=== PATIENT | male | born 1975 | race African-American/Black ===

== ENCOUNTER → 2021-08-16 | Outpatient (CLI) | payer OTHER | LOC: M PLAIMG 10:31 | PROVIDERS: ATTEND Orthopaedic Surgery | DX: M94.261 Chondromalacia, right knee (principal); M25.761 Osteophyte, right knee; M67.51 Plica syndrome, right knee ==

== ENCOUNTER → 2021-10-01 | Outpatient (CLI) | payer OTHER | LOC: M WUC 09:32 | PROVIDERS: ATTEND Nurse Practitioner Family | DX: R76.11 Nonspecific reaction to tuberculin skin test without active tuberculosis (principal) ==

== ENCOUNTER → 2021-12-23 | Outpatient (CLI) | payer OTHER | LOC: M SOG 08:26 | PROVIDERS: ATTEND Orthopaedic Surgery | DX: M17.11 Unilateral primary osteoarthritis, right knee (principal); M23.321 Other meniscus derangements, posterior horn of medial meniscus, right knee ==

== ENCOUNTER → 2022-02-26 | Outpatient (CLI) | payer OTHER | LOC: M SOG 14:19 | PROVIDERS: ATTEND Orthopaedic Surgery | DX: M25.562 Pain in left knee (principal) ==

== ENCOUNTER 2022-03-13 10:43 | Inpatient (IN) | payer OTHER ==
[~2022-03-13] VITALS: Ht 172.7 cm; Wt 102.0 kg
[2022-03-13 12:40] LABS: HEMATOCRIT 44.1 % (42.0-52.0); HEMOGLOBIN 15.7 g/dl (13.5-17.5); MEAN CORPUSCULAR HEMOGLOBIN 28.8 pg (27.0-33.0); MEAN CORPUSCULAR HGB CONC 35.6 g/dl (32.0-36.5); MEAN CORPUSCULAR VOLUME 80.8 fl (80.0-96.0); PLATELET COUNT, AUTOMATED 207 10^3/uL (150-450); RED BLOOD COUNT 5.46 10^6/uL (4.30-6.10); WHITE BLOOD COUNT 4.7 10^3/uL (4.0-10.0)
[2022-03-13 13:27] LABS: RSV AMPLIFICATION NEGATIVE (NEGATIVE)
[2022-03-13 13:48] LABS: AMPHETAMINES LEVEL URINE NEGATIVE (NEGATIVE); BARBITURATES URINE NEGATIVE (NEGATIVE); BENZODIAZEPINES URINE NEGATIVE (NEGATIVE); CANNABINOIDS URINE NEGATIVE (NEGATIVE); COCAINE METABOLITE URINE NEGATIVE (NEGATIVE); METHADONE URINE NEGATIVE (NEGATIVE); OPIATES URINE NEGATIVE (NEGATIVE); PHENCYCLIDINE URINE NEGATIVE (NEGATIVE)
[2022-03-13 14:02] LABS: ACETAMINOPHEN LEVEL < 2.0 UG/ML (10.0-20.0); ALBUMIN 3.9 G/DL (3.2-5.2); ALT/SGPT 21 U/L (7.0-40); BILIRUBIN,DIRECT 0.1 MG/DL (<0.4); BILIRUBIN,TOTAL 0.6 MG/DL (0.3-1.2); BLOOD UREA NITROGEN 14 MG/DL (9-23); CALCIUM LEVEL 9.8 MG/DL (8.5-10.1); CARBON DIOXIDE LEVEL 25 MMOL/L (20-31); CHLORIDE LEVEL 106 MMOL/L (98-107); CREATININE FOR GFR 1.31 MG/DL (0.70-1.30); ETHYL ALCOHOL (ETHANOL) 0.004 % (0.000-0.010); GLOMERULAR FILTRATION RATE > 60.0 (>60); GLUCOSE, FASTING 90 MG/DL (60-100); POTASSIUM SERUM 4.1 MMOL/L (3.5-5.1); SODIUM LEVEL 139 MMOL/L (136-145); THYROID STIMULATING HORMONE 0.883 uIU/ML (0.55-4.78); TOTAL PROTEIN 6.8 G/DL (5.7-8.2)
[2022-03-13 14:31] LABS: SALICYLATE LEVEL < 3.0 MG/DL (<30)
[2022-03-13] MEDS ORDERED: TRAZ300T2 PO (16:06)
[2022-03-13] MEDS ORDERED: FLUT11IN INH (16:06)
[2022-03-13] MEDS ORDERED: SIMV10TA21 PO (16:06)
[2022-03-13] MEDS ORDERED: BUSP10TA PO (16:06)
[2022-03-13] MEDS ORDERED: TOPI200T7 PO (16:06)
[2022-03-13] MEDS ORDERED: VENTAER INH (16:06)
[2022-03-13] MEDS ORDERED: OXYB15TA14 PO (16:06)
[2022-03-13] MEDS ORDERED: DULO1CAP6 PO (16:06)
[2022-03-13] MEDS ORDERED: HOME MED LIST COMPLETE! XX SCH (16:10)
[2022-03-13] MEDS ORDERED: busPIRone 10 MG TAB PO ONE (17:15)
[2022-03-13] MEDS ORDERED: oxyBUTYnin *DITROPAN XL* 5 MG TABCR PO ONE (22:15)
[2022-03-13] MEDS ORDERED: oxyBUTYnin 5 MG TAB PO ONE (22:15)
[2022-03-13] MEDS ORDERED: TOPIRAMATE (TopAMAX) 100 MG TAB PO ONE (22:20)
[2022-03-13] MEDS ORDERED: SIMVASTATIN 10 MG TAB PO ONE (22:20)
[2022-03-13] MEDS ORDERED: traZODone 100 MG TAB PO ONE (22:20)
[2022-03-14] MEDS ORDERED: ALBUTEROL 90 MCG/ACT 8GM HFA INHALER INH PRN (08:45)
[2022-03-14] MEDS: oxyBUTYnin *DITROPAN XL* 5 MG TABCR PO SCH (09:00)
[2022-03-14] MEDS: busPIRone 10 MG TAB PO SCH ×2 (10:50→20:25)
[2022-03-14] MEDS: DULoxetine 30MG CAPSULE (CYMBALTA) PO SCH (10:51)
[2022-03-14] MEDS: traZODone 100 MG TAB PO SCH (20:25)
[2022-03-14] MEDS: SIMVASTATIN 10 MG TAB PO SCH (20:25)
[2022-03-14] MEDS: TOPIRAMATE (TopAMAX) 100 MG TAB PO SCH (20:26)
[2022-03-15] MEDS: busPIRone 10 MG TAB PO SCH ×2 (09:57→21:41)
[2022-03-15] MEDS: oxyBUTYnin *DITROPAN XL* 5 MG TABCR PO SCH (09:57)
[2022-03-15] MEDS: DULoxetine 30MG CAPSULE (CYMBALTA) PO SCH (09:57)
[2022-03-15] MEDS ORDERED: ACETAMINOPHEN TAB 650MG DOSE (2X325MG) PO ONE ×2 (13:15→22:10)
[2022-03-15] MEDS ORDERED: oxyBUTYnin *DITROPAN XL* 5 MG TABCR PO ONE (20:50)
[2022-03-15] MEDS: SIMVASTATIN 10 MG TAB PO SCH (21:40)
[2022-03-15] MEDS: traZODone 100 MG TAB PO SCH (21:40)
[2022-03-15] MEDS: TOPIRAMATE (TopAMAX) 100 MG TAB PO SCH (21:41)
[2022-03-16] MEDS: busPIRone 10 MG TAB PO SCH ×2 (09:28→21:29)
[2022-03-16] MEDS: DULoxetine 30MG CAPSULE (CYMBALTA) PO SCH (09:28)
[2022-03-16] MEDS: oxyBUTYnin *DITROPAN XL* 5 MG TABCR PO SCH (09:29)
[2022-03-16] MEDS: TOPIRAMATE (TopAMAX) 100 MG TAB PO SCH (21:00)
[2022-03-16] MEDS: traZODone 100 MG TAB PO SCH (21:29)
[2022-03-16] MEDS: SIMVASTATIN 10 MG TAB PO SCH (21:30)
[2022-03-17] MEDS: oxyBUTYnin *DITROPAN XL* 5 MG TABCR PO SCH ×2 (08:38→20:25)
[2022-03-17] MEDS: busPIRone 10 MG TAB PO SCH ×2 (08:39→20:26)
[2022-03-17] MEDS ORDERED: DULoxetine 30MG CAPSULE (CYMBALTA) PO ONE (09:00)
[2022-03-17] MEDS ORDERED: ALBUTEROL 90 MCG/ACT 8GM HFA INHALER INH PRN (10:35)
[2022-03-17] MEDS ORDERED: IBUPROFEN 400MG TAB PO PRN (10:35)
[2022-03-17] MEDS ORDERED: MAALOX 30 ML SUSP *UDC PO PRN (10:35)
[2022-03-17] MEDS ORDERED: MOM 30ML SUSPENSION UDC PO PRN (10:35)
[2022-03-17 11:28] LABS: RSV AMPLIFICATION NEGATIVE (NEGATIVE)
[2022-03-17 17:20] VITALS: BP 135/73
[2022-03-17] MEDS: SIMVASTATIN 10 MG TAB PO SCH (20:25)
[2022-03-17] MEDS: TOPIRAMATE (TopAMAX) 100 MG TAB PO SCH (20:25)
[2022-03-17] MEDS ORDERED: oxyBUTYnin *DITROPAN XL* 5 MG TABCR PO SCH (21:00)
[2022-03-17] MEDS ORDERED: traZODone 100 MG TAB PO SCH (21:00)
[2022-03-18 06:30] VITALS: BP 108/70
[2022-03-18] MEDS: NICOTINE 21MG/24HR 1 EA TRANSDERMAL TD SCH (09:00)
[2022-03-18] MEDS ORDERED: DULoxetine 30MG CAPSULE (CYMBALTA) PO SCH (09:00)
[2022-03-18] MEDS: busPIRone 10 MG TAB PO SCH ×2 (09:16→21:32)
[2022-03-18 16:17] VITALS: BP 133/86
[2022-03-18] MEDS ORDERED: traZODone 100 MG TAB PO SCH (21:00)
[2022-03-18] MEDS ORDERED: MIRTAZAPINE 15 MG TAB PO SCH ×2 (21:00)
[2022-03-18] MEDS ORDERED: ARIPiprazole 2 MG TAB PO SCH (21:00)
[2022-03-18] MEDS: oxyBUTYnin *DITROPAN XL* 5 MG TABCR PO SCH (21:32)
[2022-03-18] MEDS: SIMVASTATIN 10 MG TAB PO SCH (21:32)
[2022-03-18] MEDS: TOPIRAMATE (TopAMAX) 100 MG TAB PO SCH (21:32)
[2022-03-19 06:06] VITALS: BP 125/78
[2022-03-19] MEDS: busPIRone 10 MG TAB PO SCH (07:54)
[2022-03-19] MEDS: NICOTINE 21MG/24HR 1 EA TRANSDERMAL TD SCH (07:54)
[2022-03-19] MEDS ORDERED: TRAZ-257 PO (08:59)
[2022-03-19] MEDS ORDERED: MIRT-10 PO (08:59)
[2022-03-19] MEDS ORDERED: NICO21PAT TD (08:59)
[2022-03-19] MEDS ORDERED: DULoxetine 30MG CAPSULE (CYMBALTA) PO SCH ×2 (09:00)
== END 2022-03-19 14:00 | disposition home or self-care (01) | DRG 885 ==
LOC: M ED 10:43 → M ED INP 03-17 10:34 → M PSY 03-17 16:08
PROVIDERS: ADMIT Student in an Organized Health Care Education/Training Program; ATTEND Student in an Organized Health Care Education/Training Program
DX: F32.89 Other specified depressive episodes (principal); R45.851 Suicidal ideations; F43.9 Reaction to severe stress, unspecified; F60.89 Other specific personality disorders; F10.90 Alcohol use, unspecified, uncomplicated; Z62.810 Personal history of physical and sexual abuse in childhood; R35.0 Frequency of micturition; N52.9 Male erectile dysfunction, unspecified; J45.909 Unspecified asthma, uncomplicated; H91.3 Deaf nonspeaking, not elsewhere classified; M25.561 Pain in right knee; G47.33 Obstructive sleep apnea (adult) (pediatric); G43.909 Migraine, unspecified, not intractable, without status migrainosus; E78.5 Hyperlipidemia, unspecified; Z79.899 Other long term (current) drug therapy

== ENCOUNTER → 2022-05-08 | Outpatient (CLI) | payer OTHER ==
[~2022-05-08] MED LIST: BUSP10TA PO; DULO1CAP6 PO; FLUT11IN INH; MIRT-10 PO; NICO21PAT TD; OXYB15TA14 PO; SIMV10TA21 PO; TOPI200T7 PO; TRAZ-257 PO; TRAZ300T2 PO; VENTAER INH
== END ==
LOC: M RAD 07:01
PROVIDERS: ATTEND Nurse Practitioner
DX: Z01.89 Encounter for other specified special examinations (principal)

== ENCOUNTER → 2022-06-23 | Outpatient (REF) | payer OTHER | LOC: M LAB REF 17:45 | PROVIDERS: ATTEND Internal Medicine Nephrology | DX: N18.2 Chronic kidney disease, stage 2 (mild) (principal) ==

== ENCOUNTER → 2022-10-06 | Outpatient (CLI) | payer OTHER ==
[~2022-10-06] MED LIST changes: -FLUT11IN INH; +FLUT12AE6 INH
== END ==
LOC: M WUC 14:28
PROVIDERS: ATTEND Surgery
DX: A15.0 Tuberculosis of lung (principal)

== ENCOUNTER → 2023-05-20 | Outpatient (CLI) | payer OTHER | LOC: M SOG 07:51 | PROVIDERS: ATTEND Orthopaedic Surgery | DX: M17.0 Bilateral primary osteoarthritis of knee (principal) ==

== ENCOUNTER → 2024-02-01 | Outpatient (REF) | LOC: M PLAIMG 08:40 | PROVIDERS: ATTEND Internal Medicine | DX: R52 Pain, unspecified (principal) ==

== ENCOUNTER → 2024-06-02 | Outpatient (CLI) | payer OTHER | LOC: M PLAIMG 11:58 | PROVIDERS: ATTEND Orthopaedic Surgery | DX: M70.61 Trochanteric bursitis, right hip (principal); M70.62 Trochanteric bursitis, left hip ==

== ENCOUNTER → 2024-06-13 | Outpatient (CLI) | payer OTHER ==
[~2024-06-13] MED LIST changes: +LIDOCAINE 1% MDV 20ML VIAL As Ordered ONE; +methylPREDNISolone SUSP 40MG/ML 1ML VIAL (DEPO MEDROL) As Ordered ONE
== END ==
LOC: M IRPRO 10:39
PROVIDERS: ATTEND Orthopaedic Surgery
DX: M70.61 Trochanteric bursitis, right hip (principal); M70.62 Trochanteric bursitis, left hip
CPT/HCPCS: 20611; J0665; J1010

== ENCOUNTER → 2024-06-22 | Outpatient (CLI) | payer OTHER ==
[~2024-06-22] MED LIST changes: -LIDOCAINE 1% MDV 20ML VIAL As Ordered ONE; -methylPREDNISolone SUSP 40MG/ML 1ML VIAL (DEPO MEDROL) As Ordered ONE
== END ==
LOC: M SOG 07:55
PROVIDERS: ATTEND Orthopaedic Surgery
DX: M17.0 Bilateral primary osteoarthritis of knee (principal)

== ENCOUNTER → 2024-07-28 | Outpatient (CLI) | payer OTHER | LOC: M PLAIMG 14:56 | PROVIDERS: ATTEND Nurse Practitioner Family | DX: M54.59 Other low back pain (principal) ==

== ENCOUNTER → 2024-09-08 | Outpatient (CLI) | payer OTHER ==
[~2024-09-08] MED LIST changes: +TOPI-14 PO; -TOPI200T7 PO
== END ==
LOC: M SOG 06:57
PROVIDERS: ATTEND Orthopaedic Surgery
DX: M25.551 Pain in right hip (principal); M25.552 Pain in left hip